=== PATIENT | male | born 1950 | race Caucasian/White ===

== ENCOUNTER 2020-09-19 10:20 | Emergency (ER) | payer BC, MEDICARE ==
[2020-09-19 10:37] VITALS: BP 132/84; PULSE 71; RESP 16; TEMP 97.8
[2020-09-19] MEDS ORDERED: COLCHICINE 0.6 MG EACH PO STA ×2 (10:50→10:51)
--- NOTE | 2020-09-19 10:59 | ED ---
General Adult HPI - General Chief complaint: Extremity Problem,Nontraumatic Stated complaint: inflamation in R elbow & foot Time Seen by Provider: 09/19/20 10:39 Source: patient, RN notes reviewed Mode of arrival: ambulatory Limitations: no limitations - History of Present Illness Initial comments: 70-year-old male presents to the emergency room for a chief complaint of right foot and ankle pain. Patient reports that he has had this week. It started several days after Father's Day when he drank 3 beers. States it feels like his gout flare. States usually takes colchicine for this but does not have any at home. Patient also complaining of left elbow pain but states this has been ongoing for several. He doctor on Tuesday in regards to this . Patient has no other complaints at this time including shortness of breath, chest pain, abdominal pain, nausea or vomiting, headache, or visual changes. - Related Data Previous Rx's Medication Instructions Recorded Colchicine [Colcrys] 0.6 mg PO BID PRN #18 tablet 07/04/15 Colchicine [Colcrys] 0.6 mg PO BID #6 tablet 09/19/20 Allergies Allergy/AdvReac Type Severity Reaction Status Date / Time No Known Allergies Allergy Verified 09/19/20 10:34 Review of Systems ROS Statement: Those systems with pertinent positive or pertinent negative responses have been documented in the HPI. ROS Other: All systems not noted in ROS Statement are negative. Past Medical History Past Medical History: Hypertension Additional Past Medical History / Comment(s): Gout History of Any Multi-Drug Resistant Organisms: None Reported Past Surgical History: No Surgical Hx Reported Past Psychological History: No Psychological Hx Reported Smoking Status: Never smoker Past Alcohol Use History: Occasional Past Drug Use History: None Reported General Exam Limitations: no limitations General appearance: alert, in no apparent distress Head exam: Present: atraumatic, normocephalic, normal inspection Eye exam: Present: normal appearance, PERRL, EOMI. Absent: scleral icterus, conjunctival injection, periorbital swelling ENT exam: Present: normal exam, mucous membranes moist Neck exam: Present: normal inspection, full ROM. Absent: tenderness, meningismus, lymphadenopathy Respiratory exam: Present: normal lung sounds bilaterally. Absent: respiratory distress, wheezes, rales, rhonchi, stridor Cardiovascular Exam: Present: regular rate, normal rhythm, normal heart sounds. Absent: systolic murmur, diastolic murmur, rubs, gallop, clicks Extremities exam: Present: other (mild erythema, edema noted of R ankle. No spreading redness. No streaking redness. No fevers.) Course Vital Signs 09/19/20 10:34 Temperature 97.8 F Pulse Rate 71 Respiratory 16 Rate Blood Pressure 132/84 O2 Sat by Pulse 98 Oximetry Medical Decision Making - Medical Decision Making Patient here for gout flare. States his right foot and ankle are bothering him for about the past week. This started after he drank beer which he normally does not do. Patient states colchicine is what helps and the most he does not have any at home. We will give patient started at 1.2 mg and he will take 0.6 mg 3 hours later for acute gout flare. We'll give him extra to repeat in the next few days if symptoms do not improve. Disposition Clinical Impression: Foot pain, right, Gout attack Disposition: HOME SELF-CARE Condition: Good Additional Instructions: Please take another pill 3 hours after he leaves the ER. If symptoms do not improve in 3 days take 1.2 mg and then take 0.6 mg 3 hours later. Prescriptions: Colchicine [Colcrys] 0.6 mg PO BID #6 tablet Is patient prescribed a controlled substance at d/c from ED?: No Referrals: Ewelina Mccarty MD [REFERRING] - 1-2 days Time of Disposition: 10:57
== END 2020-09-19 11:26 | disposition home or self-care (01) ==
LOC: EC 10:20
DX: M10.9 Gout, unspecified (principal); I10 Essential (primary) hypertension
CPT/HCPCS: 99283

== ENCOUNTER 2020-11-30 13:58 | Emergency (ER) | payer BC ==
--- NOTE | 2020-11-30 15:13 | ED ---
Extremity Problem HPI - General Chief complaint: Extremity Problem,Nontraumatic Stated complaint: R foot swelling Time Seen by Provider: 11/30/20 14:59 Source: patient, family, RN notes reviewed Mode of arrival: wheelchair Limitations: no limitations - History of Present Illness Initial comments: Well-appearing 70-year-old white male, alert and oriented 4, presents today complaining of right ankle and foot pain and swelling. He states that it's been ongoing for 9 days. He denies any injuries or fevers. In the past he has been diagnosed with gout to the right great toe. He states that he has been adhering to the strict diet to prevent gout flareups. The ankle is red and warm to the touch and painful. He believes this is gout states was given colchicine and it resolved his symptoms by the morning. MD Complaint: extremity pain, extremity swelling -: days(s) (9) Location: right (Foot and ankle) History of Same: Yes (Diagnosed with gout) Radiation: none Severity scale (1-10): 8 Quality: sharp, constant Consistency: constant Improves with: nothing Worsens with: palpation Associated Symptoms: denies other symptoms - Related Data Previous Rx's Medication Instructions Recorded Colchicine [Colcrys] 0.6 mg PO BID PRN #18 tablet 07/04/15 Colchicine [Colcrys] 0.6 mg PO BID #6 tablet 09/19/20 Cephalexin [Keflex] 500 mg PO Q6HR 7 Days #28 cap 11/30/20 Ibuprofen [Motrin] 600 mg PO Q8HR PRN #30 tab 11/30/20 Allergies Allergy/AdvReac Type Severity Reaction Status Date / Time No Known Allergies Allergy Verified 11/30/20 14:24 Review of Systems ROS Statement: Those systems with pertinent positive or pertinent negative responses have been documented in the HPI. ROS Other: All systems not noted in ROS Statement are negative. Past Medical History Past Medical History: Hypertension Additional Past Medical History / Comment(s): Gout History of Any Multi-Drug Resistant Organisms: None Reported Past Surgical History: No Surgical Hx Reported Past Psychological History: No Psychological Hx Reported Smoking Status: Never smoker Past Alcohol Use History: Occasional Past Drug Use History: None Reported General Exam Limitations: no limitations General appearance: alert, in no apparent distress Head exam: Present: atraumatic, normocephalic, normal inspection Eye exam: Present: normal appearance, PERRL, EOMI. Absent: scleral icterus, conjunctival injection, periorbital swelling ENT exam: Present: normal exam, normal oropharynx, mucous membranes moist Neck exam: Present: normal inspection, full ROM. Absent: tenderness, meningismus, lymphadenopathy Respiratory exam: Present: normal lung sounds bilaterally. Absent: respiratory distress, wheezes, rales, rhonchi, stridor Cardiovascular Exam: Present: regular rate, normal rhythm, normal heart sounds. Absent: systolic murmur, diastolic murmur, rubs, gallop, clicks GI/Abdominal exam: Present: soft Right Ankle exam: Present: tenderness, swelling, erythema (Medial malleolus and calcaneus) Neurovascular tendon exam: Present: no vascular compromise. Absent: abnormal cap refill, pallor, foot drop Back exam: Present: full ROM. Absent: tenderness, CVA tenderness (R), CVA tenderness (L) Neurological exam: Present: alert, oriented X3, CN II-XII intact Psychiatric exam: Present: normal affect, normal mood Skin exam: Present: warm, dry, intact, normal color, erythema (Right ankle and heel). Absent: rash, cyanosis, diaphoretic, petechiae, pallor Course Vital Signs 11/30/20 11/30/20 14:24 16:08 Temperature 99.1 F 97.9 F Pulse Rate 69 70 Respiratory 20 18 Rate Blood Pressure 147/84 140/99 O2 Sat by Pulse 98 97 Oximetry Medical Decision Making - Medical Decision Making X-ray of the right foot and ankle show no acute fracture or dislocation. There is mild degenerative changes of the midfoot mild degenerative changes of the first metarsophalangeal joint. There is mild diffuse soft tissue swelling of the ankle. The erythema is at the medial malleolus and calcaneus. It is not circumferential. Patient has good range of motion of the ankle joint. The patient was given colchicine in the emergency room and directed to take Motrin. He was also prescribed Keflex as it does appear to be more a cellulitis than gout. Instructed to follow-up with his primary care doctor. Case discussed with Dr. Pak. Disposition Clinical Impression: Gout, Cellulitis Disposition: HOME SELF-CARE Condition: Good Instructions (If sedation given, give patient instructions): Cellulitis (ED), Gout (ED) Additional Instructions: Take Motrin every 8 hours as prescribed. Also take antibiotics, Keflex as prescribed. Follow-up with your primary care doctor next week. Return to the emergency room for any new or worsening symptoms, increased redness, fever or increased pain. Prescriptions: Cephalexin [Keflex] 500 mg PO Q6HR 7 Days #28 cap Ibuprofen [Motrin] 600 mg PO Q8HR PRN #30 tab PRN Reason: Pain Is patient prescribed a controlled substance at d/c from ED?: No Referrals: Ivon Magaña DO [Primary Care Provider] - 1-2 days Time of Disposition: 15:56
[2020-11-30] MEDS ORDERED: COLCHICINE 0.6 MG EACH PO SCH (15:15)
--- NOTE | 2020-11-30 15:39 | XR ---
EXAMINATION TYPE: XR foot complete RT, XR ankle complete RT DATE OF EXAM: 11/30/2020 CLINICAL HISTORY: Pain and swelling TECHNIQUE: Frontal, lateral and oblique images of the right ankle and foot are obtained. Frontal, la teral, and oblique views of the right foot were obtained. COMPARISON: Right ankle radiograph 07/04/2015 FINDINGS: No acute fracture or dislocation involving the right foot or ankle. Mild degenerative changes of the midfoot. Mild degenerative changes of the first metatarsophalangeal joint. Ankle mortise appears marichuy ruent. Os trigonum is present. Mild diffuse soft tissue swelling of the ankle. Atherosclerotic vascul ar calcifications of the anterior tibial/dorsalis pedis artery. IMPRESSION: There is no acute fracture or dislocation in the right ankle or foot.
[2020-11-30 16:11] VITALS: BP 140/99; PULSE 70; RESP 18; TEMP 97.9
== END 2020-11-30 16:08 | disposition home or self-care (01) ==
LOC: EC 13:58
DX: M10.9 Gout, unspecified (principal); L03.115 Cellulitis of right lower limb; I10 Essential (primary) hypertension
CPT/HCPCS: 99283

== ENCOUNTER 2021-10-16 12:10 | Emergency (ER) | payer BC ==
[2021-10-16 12:23] VITALS: BP 189/83; RESP 18; TEMP 98.4
[2021-10-16 12:42] VITALS: PULSE 62
[2021-10-16] MEDS ORDERED: ASPIRIN 81 MG PO STA (12:49)
--- NOTE | 2021-10-16 12:53 | ED ---
General Adult HPI - General Chief complaint: Chest Pain Stated complaint: chest pain Time Seen by Provider: 10/16/21 12:33 Source: patient Mode of arrival: ambulatory Limitations: no limitations - History of Present Illness Initial comments: Dictation was produced using [employer] dictation software. please excuse any grammatical, word or spelling errors. Chief Complaint: 71-year-old male presents emergency department for chest pain History of Present Illness: This 71-year-old male denies any history of cardiac disease. Patient has history of hypertension and gout. Over the last several days he's been having worsening chest pain. Patient states that last week he tried to cut the grass however after few ward started to have chest pressure. Patient today was out picking up dog excrement in his backyard. He bent over and stood up and states he had some sharp pain. Patient went to sit down and his symptoms are improved. Patient states that he believes that there was some radiation of symptoms to his left bicep area. Is a symptomatically at the bedside. He reports strong family history of cardiac disease. The ROS documented in this emergency department record has been reviewed and confirmed by me. Those systems with pertinent positive or negative responses have been documented in the HPI. All other systems are other negative and/or noncontributory. PHYSICAL EXAM: General Impression: Alert and oriented x3, not in acute distress HEENT: Normocephalic atraumatic, extra-ocular movements intact, pupils equal and reactive to light bilaterally, mucous membranes moist. Cardiovascular: Heart regular rate and rhythm Chest: Able to complete full sentences, no retractions, no tachypnea Abdomen: abdomen soft, non-tender, non-distended, no organomegaly Musculoskeletal: Pulses present and equal in all extremities, no peripheral edema Motor: no focal deficits noted Neurological: CN II-XII grossly intact, no focal motor or sensory deficits noted Skin: Intact with no visualized rashes Psych: Normal affect and mood ED course: 71-year-old male presents to the emergency department for clinical presentation concerning for acute coronary syndrome. There is concern of unstable angina. Vital signs upon arrival are within acceptable limits. EKG shows no findings of ischemia or infarction. Laboratory evaluation obtained. CBC, coag panel, both panel is unremarkable. Abdominal labs are negative. Troponin is normal. Chest x-ray is nonacute. Patient was observed in emergency department for approximately 2 hours and 20 minutes. Is reevaluated bedside 2:30 PM. Was recommended to patient to be admitted to observation overnight for cardiac monitoring, cardiology consultation and perhaps cardiac stress test. Patient refuses states that he rather be discharged. He was also recommended the patient to stay for a second troponin 3 hours after the first he also refuses that states that he wants to go home. Risks benefits were discussed. He is told that his workup is not complete and that he could have underlying acute coronary process that could lead to heart attack or major adverse cardiac event. Patient presents a risk and prefer to be discharged. Patient is given aspirin and referral to car diology for outpatient care. EKG interpretation: Ventricular rate 63, sinus rhythm,. 1:30, care is 85, QTC 429. No IN prolongation, no QTC prolongation, no ST or T-wave changes noted. Overall, this EKG is unremarkable - Related Data Home Medications Medication Instructions Recorded Confirmed Acetaminophen Tab [Tylenol] 325 mg PO Q6H PRN 10/16/21 10/16/21 Allergies Allergy/AdvReac Type Severity Reaction Status Date / Time No Known Allergies Allergy Verified 10/16/21 14:21 Review of Systems ROS Statement: Those systems with pertinent positive or pertinent negative responses have been documented in the HPI. ROS Other: All systems not noted in ROS Statement are negative. Past Medical History Past Medical History: Hypertension Additional Past Medical History / Comment(s): Gout History of Any Multi-Drug Resistant Organisms: None Reported Past Surgical History: Orthopedic Surgery Past Psychological History: No Psychological Hx Reported Smoking Status: Never smoker Past Alcohol Use History: Occasional Past Drug Use History: None Reported General Exam Limitations: no limitations Course Vital Signs 10/16/21 10/16/21 12:19 12:39 Temperature 98.4 F Pulse Rate 64 Pulse Rate [ 62 Automation Lead ] Respiratory 18 Rate Blood Pressure 189/83 O2 Sat by Pulse 98 Oximetry Medical Decision Making - Lab Data Result diagrams: 10/16/21 12:51 10/16/21 12:51 Lab Results 10/16/21 10/16/21 10/16/21 Range/Units 12:51 12:51 12:51 WBC 7.2 (3.8-10.6) k/uL RBC 4.73 (4.30-5.90) m/uL Hgb 14.7 (13.0-17.5) gm/dL Hct 42.0 (39.0-53.0) % MCV 88.8 (80.0-100.0) fL MCH 31.1 (25.0-35.0) pg MCHC 35.0 (31.0-37.0) g/dL RDW 13.8 (11.5-15.5) % Plt Count 240 (150-450) k/uL MPV 7.9 Neutrophils % 61 % Lymphocytes % 28 % Monocytes % 6 % Eosinophils % 3 % Basophils % 1 % Neutrophils # 4.4 (1.3-7.7) k/uL Lymphocytes # 2.0 (1.0-4.8) k/uL Monocytes # 0.4 (0-1.0) k/uL Eosinophils # 0.2 (0-0.7) k/uL Basophils # 0.1 (0-0.2) k/uL PT 10.9 (9.0-12.0) sec INR 1.0 (<1.2) APTT 26.6 (22.0-30.0) sec Sodium 138 (137-145) mmol/L Potassium 4.7 (3.5-5.1) mmol/L Chloride 108 H (98-107) mmol/L Carbon Dioxide 22 (22-30) mmol/L Anion Gap 8 mmol/L BUN 14 (9-20) mg/dL Creatinine 0.88 (0.66-1.25) mg/dL Est GFR (CKD-EPI)AfAm >90 (>60 ml/min/1.73 sqM) Est GFR (CKD-EPI)NonAf 87 (>60 ml/min/1.73 sqM) Glucose 96 (74-99) mg/dL Calcium 9.1 (8.4-10.2) mg/dL Magnesium 1.9 (1.6-2.3) mg/dL Total Bilirubin 1.3 (0.2-1.3) mg/dL AST 37 (17-59) U/L ALT 16 (4-49) U/L Alkaline Phosphatase 45 (38-126) U/L Troponin I (0.000-0.034) ng/mL Total Protein 7.5 (6.3-8.2) g/dL Albumin 4.6 (3.5-5.0) g/dL 10/16/21 Range/Units 12:51 WBC (3.8-10.6) k/uL RBC (4.30-5.90) m/uL Hgb (13.0-17.5) gm/dL Hct (39.0-53.0) % MCV (80.0-100.0) fL MCH (25.0-35.0) pg MCHC (31.0-37.0) g/dL RDW (11.5-15.5) % Plt Count (150-450) k/uL MPV Neutrophils % % Lymphocytes % % Monocytes % % Eosinophils % % Basophils % % Neutrophils # (1.3-7.7) k/uL Lymphocytes # (1.0-4.8) k/uL Monocytes # (0-1.0) k/uL Eosinophils # (0-0.7) k/uL Basophils # (0-0.2) k/uL PT (9.0-12.0) sec INR (<1.2) APTT (22.0-30.0) sec Sodium (137-145) mmol/L Potassium (3.5-5.1) mmol/L Chloride (98-107) mmol/L Carbon Dioxide (22-30) mmol/L Anion Gap mmol/L BUN (9-20) mg/dL Creatinine (0.66-1.25) mg/dL Est GFR (CKD-EPI)AfAm (>60 ml/min/1.73 sqM) Est GFR (CKD-EPI)NonAf (>60 ml/min/1.73 sqM) Glucose (74-99) mg/dL Calcium (8.4-10.2) mg/dL Magnesium (1.6-2.3) mg/dL Total Bilirubin (0.2-1.3) mg/dL AST (17-59) U/L ALT (4-49) U/L Alkaline Phosphatase (38-126) U/L Troponin I <0.012 (0.000-0.034) ng/mL Total Protein (6.3-8.2) g/dL Albumin (3.5-5.0) g/dL Disposition Clinical Impression: Chest pain Disposition: HOME SELF-CARE Condition: Fair Instructions (If sedation given, give patient instructions): Chest Pain (ED) Additional Instructions: It is important that if he have recurrence of symptoms to seek immediate medical attention. It was discussed that you are considered high risk and would benefit from observation admission for cardiac monitoring and cardiology consultation. You're given a referral to cardiology. Is patient prescribed a controlled substance at d/c from ED?: No Referrals: Bryon Davila DO [STAFF PHYSICIAN] - 1-2 days Time of Disposition: 14:34
[2021-10-16 13:07] LABS: Basophils # (A) 0.1 k/uL (0-0.2); Basophils % (A) 1 %; Eosinophils # (A) 0.2 k/uL (0-0.7); Eosinophils % (A) 3 %; HGB 14.7 gm/dL (13.0-17.5); Lymphocytes % (A) 28 %; MCH 31.1 pg (25.0-35.0); MCV 88.8 fL (80.0-100.0); Mean Platelet Volume 7.9; Monocytes # (A) 0.4 k/uL (0-1.0); Monocytes % (A) 6 %; Neutrophils # (A) 4.4 k/uL (1.3-7.7); Neutrophils % (A) 61 %; Platelet Count 240 k/uL (150-450); RBC 4.73 m/uL (4.30-5.90); RDW 13.8 % (11.5-15.5); WBC 7.2 k/uL (3.8-10.6)
[2021-10-16 13:21] LABS: African American GFR (CKD) >90 (>60 ml/min/1.73 sqM); Blood Urea Nitrogen 14 mg/dL (9-20); Calcium 9.1 mg/dL (8.4-10.2); Carbon Dioxide 22 mmol/L (22-30); Glucose 96 mg/dL (74-99); Non-African American GFR(CKD) 87 (>60 ml/min/1.73 sqM); Sodium 138 mmol/L (137-145); Total Bilirubin 1.3 mg/dL (0.2-1.3)
[2021-10-16 13:27] LABS: Partial Thromboplastin Time 26.6 sec (22.0-30.0); Prothrombin Time 10.9 sec (9.0-12.0)
[2021-10-16 13:28] LABS: ALT 16 U/L (4-49); Anion Gap 8 mmol/L; Chloride 108 mmol/L (98-107)
[2021-10-16 13:35] LABS: Albumin 4.6 g/dL (3.5-5.0); Potassium 4.7 mmol/L (3.5-5.1); Total Protein 7.5 g/dL (6.3-8.2)
[2021-10-16 13:36] LABS: AST 37 U/L (17-59); Alkaline Phosphatase 45 U/L (38-126); Magnesium 1.9 mg/dL (1.6-2.3)
== END 2021-10-16 14:46 | disposition home or self-care (01) ==
LOC: EC 12:10
DX: R07.9 Chest pain, unspecified (principal); I10 Essential (primary) hypertension; Z79.1 Long term (current) use of non-steroidal anti-inflammatories (NSAID)
CPT/HCPCS: 36415; 71046; 80053; 83735; 84484; 85025; 85610; 85730; 99285

== ENCOUNTER 2021-12-20 08:21 | Emergency (ER) | payer BC ==
[2021-12-20 08:31] VITALS: TEMP 98.1
[2021-12-20] MEDS ORDERED: COLCHICINE 0.6 MG EACH PO STA (08:41)
[2021-12-20] MEDS ORDERED: KETOROLAC 15 MG/ML 1 ML VIAL IM STA (08:42)
--- NOTE | 2021-12-20 08:51 | ED ---
General Adult HPI - General Chief complaint: Extremity Problem,Nontraumatic Stated complaint: Lt Knee Pain/Swollen Time Seen by Provider: 12/20/21 08:31 Source: patient, RN notes reviewed, old records reviewed Mode of arrival: ambulatory Limitations: no limitations - History of Present Illness Initial comments: 71-year-old male with history of gout presenting with 4 days of pain and swelling to the left knee. Patient states this is similar to prior episode of gout that he's had in the right knee. He denies injury. Denies measured fever. Denies calf pain or chest pain, no difficulty breathing. - Related Data Home Medications Medication Instructions Recorded Confirmed Acetaminophen Tab [Tylenol] 325 mg PO Q6H PRN 10/16/21 10/16/21 Previous Rx's Medication Instructions Recorded Colchicine [Colcrys] 0.6 mg PO BID #6 tablet 12/20/21 predniSONE 50 mg PO DAILY #5 tab 12/20/21 Allergies Allergy/AdvReac Type Severity Reaction Status Date / Time ibuprofen [From Motrin] AdvReac Nausea & Verified 12/20/21 08:31 Vomiting Review of Systems ROS Statement: Those systems with pertinent positive or pertinent negative responses have been documented in the HPI. ROS Other: All systems not noted in ROS Statement are negative. Past Medical History Past Medical History: Hypertension Additional Past Medical History / Comment(s): Gout History of Any Multi-Drug Resistant Organisms: None Reported Past Surgical History: Orthopedic Surgery Past Psychological History: No Psychological Hx Reported Smoking Status: Never smoker Past Alcohol Use History: Occasional Past Drug Use History: None Reported General Exam Limitations: no limitations General appearance: alert, in no apparent distress Head exam: Present: atraumatic, normocephalic Eye exam: Present: normal appearance, PERRL ENT exam: Present: normal exam Neck exam: Present: normal inspection Respiratory exam: Present: normal lung sounds bilaterally. Absent: respiratory distress, wheezes Cardiovascular Exam: Present: regular rate, normal rhythm Extremities exam: Present: normal capillary refill, other (Left leg, there is no erythema overlying the knee, minimal warmth, small effusion, no bony abnormality). Absent: calf tenderness Neurological exam: Present: alert, oriented X3, CN II-XII intact. Absent: motor sensory deficit Psychiatric exam: Present: normal affect, normal mood Skin exam: Present: warm, dry, intact Course Vital Signs 12/20/21 08:29 Temperature 98.1 F Pulse Rate 83 Respiratory 20 Rate Blood Pressure 173/83 O2 Sat by Pulse 98 Oximetry Medical Decision Making - Medical Decision Making 71-year-old male, likely inflammatory arthritis, possible gout. History of gout. Patient is not febrile. The knee does not have large effusion, erythema or significant warmth. I suspect that this is inflammatory rather than infectious arthritis however the patient is informed of strict return parameters regarding infectious arthritis. There is no injury. He should follow up with orthopedics. He started on colchicine followed by steroids. Disposition Clinical Impression: Gout, Knee pain, left Disposition: HOME SELF-CARE Condition: Good Instructions (If sedation given, give patient instructions): Knee Pain (ED), Gout (ED) Prescriptions: Colchicine [Colcrys] 0.6 mg PO BID #6 tablet predniSONE 50 mg PO DAILY #5 tab Is patient prescribed a controlled substance at d/c from ED?: No Referrals: Ivon Magaña DO [Primary Care Provider] - 1-2 days Lisandra Dozier DO [Doctor of Osteopathic Medicine] - 1-2 days Time of Disposition: 08:46
[2021-12-20 09:17] VITALS: BP 156/89; PULSE 73; RESP 18
== END 2021-12-20 09:17 | disposition home or self-care (01) ==
LOC: EC 08:21
DX: M10.9 Gout, unspecified (principal); I10 Essential (primary) hypertension; Z88.6 Allergy status to analgesic agent
CPT/HCPCS: 99283; 96372; J1885